=== PATIENT | female | born 1945 | race Caucasian/White ===

== ENCOUNTER → 2017-08-22 | Outpatient (CLI) | payer OTHER ==
[~2017-08-22] MED LIST: ADULT LOW DOSE81 MG PO; AMOXICILLIN875 MG PO; AZULFADINE PO; CALCIUM PO; COLACE100 MG PO; FISH OIL 1,0001 EAC5 PO; FLEXERIL PO; FLONASE NS; GLUCOSAMINE HC500 MG PO; IBUPROFEN 800800 MG PO; IRON325 PO; MEDROLDOSEPACK PO; MULTIVITAMINS PO; NORCO 5-325 TA1 EACH PO; PRILOSEC20 MG PO; PRINIVIL5 MG PO; SIMVASTATIN40 MG PO; VITAMIN E400 UNIT PO; ZYRTEC PO; [UNRECOGNIZED DRUG - OTHER] PO
== END ==
LOC: RAD 08-15 10:56
DX: Z12.31 Encounter for screening mammogram for malignant neoplasm of breast (principal)

== ENCOUNTER → 2018-08-28 | Outpatient (CLI) | payer OTHER | LOC: RAD 14:22 | DX: Z12.31 Encounter for screening mammogram for malignant neoplasm of breast (principal) ==

== ENCOUNTER → 2018-08-30 | Outpatient (CLI) | payer OTHER | LOC: RAD 01:05 | DX: R92.2 Inconclusive mammogram (principal) ==

== ENCOUNTER → 2019-08-31 | Outpatient (CLI) | payer OTHER | LOC: BC 14:12 | DX: Z12.31 Encounter for screening mammogram for malignant neoplasm of breast (principal) ==

== ENCOUNTER → 2020-09-09 | Outpatient (CLI) | payer OTHER | LOC: RAD 08:47 | PROVIDERS: ATTEND Internal Medicine | DX: Z12.31 Encounter for screening mammogram for malignant neoplasm of breast (principal) ==